=== PATIENT | female | born 1940 | race Caucasian/White ===

== ENCOUNTER 2021-07-29 08:00 | Outpatient (RCR) | payer MEDICARE, BC, SELFPAY ==
--- NOTE | 2021-06-17 15:03 | PTOPEVAL ---
PHYSICAL THERAPY EVALUATION AND PLAN OF CARE 06-17-21 Thank you for referring Tara Doherty to [facility][Note 3].? Tara is scheduled to be seen for therapy? 1 x/week for 6 weeks. Please review, sign, date and return this plan of care LIZZETTE. I agree with and certify that the following plan of care is medically necessary. 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 ; feet cramps; Cardiovascular History Hx Hypertension Yes: meds Respiratory History Hx Respiratory Disorders No Significant History Gastrointestinal History Hx Other Gastrointestinal Disorders Yes: bleeding ulcers- meds, watch diet Genitourinary History Hx Genitourinary Disorders No Significant History Musculoskeletal History Hx Joint Replacement Yes: L TKR Endocrine History Hx Endocrine Disorders No Significant History HEENT History Hx HEENT Disorders No Significant History Other History Hx Cancer Yes: pancreatic cancer- non surgical, dx about 1 yr ago Hx Chemotherapy Yes: chemo every 2 weeks, not set for end time frame Hx Radiation Therapy Yes: 5 treatments, completed, no further planned Hx Other Medical Conditions Yes: with cancer treatment have lost 50# in past yr Evaluation Information Problem Diagnosis deconditioning due to chemotherapy and pancreatic cancer Onset March 2021 Subjective Information gradually decreased strength Query Text:As Reported By Patient/ and activity due to cancer Family treatments; have no appetite and food does not taste good to her; decreased activity- no longer working in yard or going out with friends; have not had any falls; Previous Treatments Previous Treatments For This Problem no PT treatments Prior Level of Function Activity Level (Last 3 Months) Occupation retired Activity of Daily Living Ability Independent Indoor/Home Mobility Independent Community Mobility Independent Stairs Ability Independent Functional Cognition (Planning, Shopping Independent , Taking Medications) Cooking
--- NOTE | 2021-07-29 08:39 | PTOPEVAL ---
PHYSICAL THERAPY DISCHARGE 07-29-21 Refer to the clinical summary below, for her status today, compared to the initial evaluation. The goals were partially achieved. Discharge PT services and she is to continue with her home exercises and increasing her walking and activity level as tolerated. Thank you for referring Tara Doherty to [facility] [place] Please review, sign, date and return this Discharge Report LIZZETTE. I agree with and certify that the following plan of care is medically necessary. Referring Physician Date Attending Provider: Yenifer Nolan MD Document 07/29/21 08:00 FREDDY (Rec: 07/29/21 08:39 FREDDY [id number]) Assessment Status Discharge Subjective Information Tara reports: still get Query Text:As Reported By Patient/ winded and do not have very Family good endurance yet; walking balance is better; doing exercises at home, doing as can; was able to go shopping with her friend for 2 hours, was tired but did OK; have not had any falls; the past week, has had some stomach issues, so not doing as much as she should; agrees to discharge from PT services and continue with HEP; Pain Assessment Timing of Pain Assessment Timing of Pain Assessment Assessment Self Report Self Report Pain Level 0 Pain Score Pain Score 0: Self Report Lower Extremity Muscle Strength Testing General Lower Extremity Strength Gross Lower Extremity Strength functional strength testing: - single leg standing R 7/ L 3 seconds - sit/stand from 18 seat 3x without use of UE's -supine SLR R 15/L 15 reps - side lying hip abduction R 12/ L 11 reps - sitting: ankle DF L 2+/5, with active DF lift to (-5'); she has awareness of this pt reports numbness and no sensation in L foot; educated on monitor skin, and check shoes for any items in them; and if she does have issues with walking and foot drags, there are options for ankle braces to support her ankle; verbal review of HEP, p
== END 2021-08-01 16:12 | disposition home or self-care (01) ==
LOC: ANHPT 08:00
PROVIDERS: PCP Physician Assistant
DX: C25.1 Malignant neoplasm of body of pancreas (principal); R53.81 Other malaise
CPT/HCPCS: 97110; 97161

== ENCOUNTER 2021-10-02 11:37 | Inpatient (IN) | payer MEDICARE, BC, SELFPAY ==
[2021-10-02] VITALS (8 sets, daily range): BP systolic 108–149; BP diastolic 62–100; PULSE 84–163; RESP 11–18; TEMP 36.5–36.9; O2SAT 99–100
--- NOTE | ~2021-10-02 | XR_ITS ---
XR chest 1V DATE: 10/02/2021 13:14 INDICATION: Multiple falls. Chest and shoulder pain TECHNIQUE: AP chest COMPARISON: None FINDINGS: Right internal jugular Port-A-Cath catheter tip overlies the superior vena cava. Normal heart size. Mild aortic unfolding and calcification. No hilar or mediastinal enlargement. No pulmonary infiltrate or consolidation, pleural effusion or pulmonary vascular congestion or pneumo thorax. Diffuse osteopenia. Degenerative spurring of the thoracic spine. IMPRESSION: No active cardiopulmonary disease Right Port-A-Cath Reviewed, dictated and finalized at location A. ATION THERAPIST
--- NOTE | ~2021-10-02 | CT_ITS ---
EXAMINATION: CT brain wo con DATE: 10/02/2021 12:46 INDICATION: Syncopal episodes. Patient fell, struck left side of head. TECHNIQUE: Computed tomography (CT) of the head was performed without intravenous contrast. The mA wa s adjusted according to patient size. Iterative reconstruction technique was employed. Exam dose: 68 1.00 mGy-cm total exam DLP. COMPARISON: 06/30/2005 MRI brain FINDINGS: Prominent calcification of the carotid siphon internal carotid artery calcifications. There is nonspecific diminished attenuation of the cerebral white matter, likely due to chronic small vess el ischemic changes. No intracranial mass lesion or hemorrhage or cerebrovascular accident, midline shift or mass effect i s detected. There is moderately prominent cerebral volume loss. No subdural or epidural hematoma. A bone flap is in place over the left posterior parietal area. No fracture or bone destruction of the cranial vault. Normal development and aeration of the paranasal sinuses. IMPRESSION: Status post left posterior parietal craniotomy Cerebral atherosclerosis and chronic small vessel ischemic changes of the cerebral white matter No acute intracranial finding or skull fracture Reviewed, dictated and finalized at Location A. Reviewed, dictated and finalized at location A. AL HYGIENIST IMPRESSION: Status post left posterior parietal craniotomy Cerebral atherosclerosis and chronic small vessel ischemic changes of the cereb ral white matter No acute intracranial finding or skull fracture
--- NOTE | ~2021-10-02 | US_ITS ---
EXAMINATION: US carotid duplex BI DATE: 10/03/2021 14:24 INDICATION: Syncope TECHNIQUE: Grayscale, color Doppler, and pulsed Doppler images of the cervical carotid arteries were obtained. The degree of vessel stenosis is placed in one of the following categories: normal, <50%, 5 0-69%, >=70% but less than near-occlusion, near-occlusion, or total occlusion. Note that percent sten osis relative to normal distal artery lumen diameter is indirectly measured from velocity measurement s as described by Aric, et al. Radiology 2003; 229:340-346. Notes: Normal: Peak systolic velocity <125 centimeters/sec and no plaque <50%. Peak systolic velocity <125 ( EDV <40; ICA/CCA PSV ratio <2.0; used these factors only a tandem lesions or low cardiac output or co ntralateral disease) 50-69 %: PSV 125-230 (EDV 40-100; ratio 2-4) >= 70% but less than near occlusion: PSV greater than 230 (EDV > 100; ratio> 4.0) Near Occlusion: PSV that is variable; markedly narrowed lumen Occlusion: Absent flow on color/spectral Doppler and no lumen on peña scale. COMPARISON: None. FINDINGS: RIGHT: The right common carotid artery (CCA) peak systolic velocity (PSV) is 88 cm/s. The right internal car otid artery (ICA) PSV is 86 cm/s. The right ICA end-diastolic velocity (EDV) is 16 cm/s. The right IC A/CCA PSV ratio is 1.0. The external carotid artery (ECA) PSV is 88 cm/s. There is antegrade flow in the right vertebral artery. LEFT: The left CCA PSV is 102 cm/s. The left ICA PSV is 64 cm/s. The left ICA EDV is 19.6 cm/s. The left IC A/CCA PSV ratio is 0.6. The ECA PSV is 95 cm/s. There is antegrade flow in the left vertebral artery . IMPRESSION: 1. Less than 50% stenosis in the right internal carotid artery by sonographic criteria. 2. Less than 50% stenosis in the left internal carotid artery by sonographic criteria. Reviewed, dictated and finalized at location B. [employer] IMPRESSION: 1. Less than 50% stenosis in the right internal carotid artery by sonographic nicole moreau. 2. Less than 50% stenosis in the left internal carotid artery by sonographic pan finn.
--- NOTE | ~2021-10-02 | XR_ITS ---
XR shoulder LT min 2V DATE: 10/02/2021 13:14 INDICATION: Multiple falls. Left shoulder pain TECHNIQUE: 4 views COMPARISON: None FINDINGS: Diffuse osteopenia. There is degenerative change at the left acromioclavicular joint. No fracture or dislocation, periosteal reaction or bone destruction or abnormal soft tissue calcifica tion of the left shoulder is noted. Degenerative spurring of the thoracic spine. Right-sided Port-A-Cath. IMPRESSION: Osteopenia Degenerative change at left acromioclavicular joint No fracture or dislocation of left shoulder is detected Reviewed, dictated and finalized at location A. [employer]
--- NOTE | ~2021-10-02 | CT_ITS ---
EXAMINATION: CTA chest PE protocol DATE: 10/02/2021 15:00 INDICATION: Chest pain, history of pancreatic cancer there is a 5 mm nodule TECHNIQUE: Computed tomography angiography (CTA) of the chest was performed with 100 mL Omnipaque-350 intravenous contrast timed to evaluate the pulmonary arteries. Coronal maximum intensity projection 3D-reconstructions were created by the technologist. The dose-length product (DLP) was 409.08 mGy-cm. Automated exposure control and iterative reconstruction technique were employed. COMPARISON: None FINDINGS: The pulmonary arteries are well-opacified. No pulmonary embolism is identified. There is a 5 mm nodule of the right lower lobe. A 5 mm nodule is also present in the right middle lobe. There is mild dependent atelectasis. No pleural effusion or pneumothorax is identified. Right hilar lymphaden opathy is noted. A bone island is noted in the T10 vertebral body. A right internal jugular Port-A-Ca th is noted. The known pancreatic malignancy is not well demonstrated. IMPRESSION: 1. No pulmonary embolism identified. 2. Right hilar lymphadenopathy and right lung nodules, possible metastatic disease. Recommend correla tion with any outside hospital imaging. Reviewed, dictated and finalized at location F. SCREENER IMPRESSION: 1. No pulmonary embolism identified. 2. Right hilar lymphadenopathy and right lung nodules, possible metastatic dise ase. Recommend correlation with any outside hospital imaging.
--- NOTE | 2021-10-02 11:57 | ECG_ITS ---
Measurements Intervals [place] Rate: 102 P: 50 KS: 160 QRS: -37 QRSD: 108 T: 50 QT: 365 QTc: 477 Interpretive Statements SINUS TACHYCARDIA ATRIAL PREMATURE COMPLEX LEFT AXIS DEVIATION VOLTAGE CRITERIA FOR LVH MINIMAL Q WAVES- HIGH LATERAL LEADS BASELINE ARTIFACT- I, II, III, AVR, AVL, AVF, V2-V6 BORDERLINE ECG Electronically Signed On 10-02-2021 13:38:23 NATIONAL FACILITIES MANAGER by Jalen Gutierrez D.O.
[2021-10-02] MEDS: SODIUM CHLORIDE 0.9% IV 1,000 ML 999 ML IV CONT (12:20)
--- NOTE | 2021-10-02 12:25 | ED.GENADULT ---
HPI - General Adult General Chief complaint: Syncope Stated complaint: syncopal episode Time Seen by Provider: 10/02/21 12:04 Source: RN notes reviewed History of Present Illness HPI narrative: Patient presents emergency department from home via EMS for syncope. He states that this a.m. she has had 2 syncopal episode she states that for syncopal episode was when she was standing in the shower drying her hair and she passed out and awoke on the floor of the bathtub at that time patient's neighbor came to help her get up states proximally an hour later she was getting her medications together in the kitchen when she again had a syncopal episode that time she suffered a skin tear to her left cheek she states she had no chest pain or shortness of breath no dizziness she states she has been feeling well she has a history of pancreatic cancer and is followed by Dr. Bazan for oncology at site and she does note some mild shoulder pain since the fall but denies any other injuries she has no complaints at this time states she has not had any recent illness Related Data Home Medications Medication Instructions Recorded Confirmed Adult One Daily Multivitamin 1 tablet PO DAILY 10/02/21 amlodipine 5 mg PO DAILY 10/02/21 benazepril 40 mg PO DAILY 10/02/21 docusate sodium 200 mg PO BID 10/02/21 metoprolol tartrate 50 mg PO BID 10/02/21 pantoprazole 40 mg PO BID 10/02/21 prochlorperazine maleate 10 mg PO Q6-8H PRN 10/02/21 Allergies Allergy/AdvReac Type Severity Reaction Status Date / Time No Known Allergies Allergy Verified 10/04/17 07:35 Review of Systems Review of Systems: Gen.: Denies fevers or chills Eyes: Denies eye pain or visual change ENT: Denies congestion Respiratory: Denies shortness of breath or cough CV: Denies chest pain reports syncope GI: Denies abdominal pain nausea, emesis or diarrhea Musculoskeletal: Denies back pain or muscle pain Neuro: Denies numbness, tingling, weakness or focal weakness Skin: Denies rash Except as documented, all other systems reviewed and negative [facility], [facility] Past Medical History Medical History (Updated 10/02/21 @ 17:05 by Rylan Razo DO) Pancreatic cancer Social History Social History (Updated 01/23/22 @ 12:31 by KAITLIN Rubio Smoking status: Never smoker Exam Narrative: APPEARANCE: No acute distress, nontoxic, resting in bed EYES: EOMI, PERRL HEENT: Normocephalic, superficial skin tear over the left cheek no active bleeding, nares patent Neck supple no midline tenderness palpation full range of motion neck without pain RESPIRATORY: No respiratory distress Clear to auscultation bilaterally with no rhonchi wheezing or rales. CARDIOVASCULAR: Regular rate and rhythm without murmurs rubs or gallops. ABDOMINAL: Soft, nontender, nondistended, no rebound or guarding MUSCULOSKELETAl: Moves all extremities. No clubbing, cyanosis or edema. Mild tenderness over the left anterior lateral shoulder no swelling or ecchymosis full range of motion of the shoulder without pain no tenderness left elbow or wrist radial pulse 2+ neurovascular intact NEURO: Awake and alert x 3 Following commands, speech normal, no focal deficits SKIN:: Warm, dry. No rashes lesions or abrasions PSYCHIATRIC: Normal affect/mood, Course Course Emergency Course: Patient with orthostatics in ED heart rate goes up to the 160s with standing I did print off a rhythm strip it does look like possible A. fib when she lays back down her heart rate goes back down in the 90s she states she felt dizzy when she stood up and it resolves when she lays down Called discussed with [facility] oncology Dr. Donis he feels with orthostasis patient may remain in our facility patient did have a hemoglobin of 9.0 on September 28 Discussed with MCKAYLA Matos for Dr. Chin presentation work-up agrees with admission at this time Discussed with patient and family results of workup and diagnosis. Discussed need for admission
[2021-10-02 12:41] LABS: Basophils Percent Auto 0.2 % (0.2-1.2); Eosinophils Percent Auto 0.6 % (0-4.4); Hematocrit 26.8 % (37.0-47.0); Hemoglobin 8.3 g/dL (12.0-15.0); Immature Granulocyte Absolute 0.03 K/mm3 (0.00-0.031); Immature Granulocyte Percent A 0.5 % (0-0.5); Lymphocytes Absolute Auto 0.33 K/mm3 (0.9-3.2); Lymphocytes Percent Auto 5.1 % (18.3-44.2); Mean Corpuscular Hemoglobin 24.9 pg (26-34); Mean Corpuscular Volume 80.2 fl (80-100); Mean Platelet Volume 10.1 fl (7.4-10.4); Monocytes Absolute Auto 0.1 K/mm3 (0.1-0.6); Monocytes Percent Auto 1.7 % (2.6-8.5); Neutrophils Percent Auto 91.9 % (45.5-73.1); Platelet Count Result 227 k/mm3 (150-375); Red Blood Count 3.34 M/mm3 (4.2-5.4); Red Cell Distribution Width 16.9 % (11.5-14.5); White Blood Count 6.5 K/mm3 (4.5-10.0)
[2021-10-02 12:53] LABS: Alanine Aminotransferase 17 U/L (4-35); Albumin Level 3.5 g/dL (3.5-5.1); Alkaline Phosphatase 80 U/L (38-126); Anion Gap 8 mmol/L (8-16); Aspartate Amino Transferase 23 U/L (14-36); Bilirubin,Total 0.4 mg/dL (0.2-1.3); Blood Urea Nitrogen 14 mg/dL (7-17); Carbon Dioxide 27 mmol/L (22-30); Chloride 99 mmol/L (98-107); Estimated CRCL calculation 40 ml/min; Estimated Glomerular Filt Rate > 60; Glucose 174 mg/dL (65-110); INR 1.1; Potassium 3.1 mmol/L (3.4-5.0); Prothrombin Time 13.9 Seconds (11.1-14.7); Sodium 134 mmol/L (137-145)
[2021-10-02 12:54] LABS: Partial Thromboplastin Time 28.6 SECONDS (22.3-36.8)
[2021-10-02 13:05] LABS: Troponin I 0.017 ng/mL (0.000-0.034)
[2021-10-02] MEDS: POTASSIUM CHLORIDE 20 MEQ TABLET 40 MEQ PO (13:28)
[2021-10-02 13:42] LABS: Add Urine Microscopic? YES; Appearance Urine Clear (Clear); Bacteria Urine 1+ /hpf; Bilirubin Urine Negative (Negative); Blood Urine Negative (Negative); Color Urine Yellow (Yellow); Glucose Urine UA Negative (Negative); Ketones Urine Negative (Negative); Leukocyte Esterase Ur Trace LEU/UL (Negative); Mucus Urine Rare /lpf; Nitrate Urine Negative (Negative); Protein Urine 1+ mg/dL (Negative); Specific Grav Ur 1.009 (1.001-1.035); Squamous Epithelial Cell Urine Many /hpf (Few); Urobilinogen Urine Negative mg/dL (<2.0)
[2021-10-02 16:21] LABS: SARS-CoV-2 RNA PCR Negative
[2021-10-02] MEDS: SODIUM CHLORIDE 0.9% IV 1,000 ML 125 ML IV CONT (16:44)
--- NOTE | 2021-10-02 18:00 | PM.IMHP ---
H&P: HPI History of Present Illness Date/Time: 10/02/21 18:00 Chief Complaint: Syncope x2. Narrative: This is a very pleasant 81-year-old female with hypertension and pancreatic cancer who presented to the emergency department earlier today via EMS from home for evaluation of syncope x2. She was diagnosed with pancreatic cancer in November 2019 and was treated with radiation initially and she continues to receive chemotherapy every other week with her last treatment being 3 days ago. She tolerates chemotherapy quite well however this cycle her appetite has not been as good and thus she has had decrease in oral intake. She felt fine when she woke this morning and after breakfast she went to have a shower at which time she noticed that her heart was beating fast. When she was in the shower her heart rate seem to slow down however towards the end of her shower she developed sudden feelings of wooziness and lightheadedness in the next thing she know she was waking up on her back in the bathtub. Her and neighbors helped her to bed where she rested for a period of time before getting up to take her morning medications. While walking to the kitchen her heart started to race again and she once again felt lightheaded and had a syncopal episode, landing face forward on the floor. She sustained a skin tear to the left cheek and a sore left shoulder but luckily had no other injuries. Her blood pressures have been stable since arrival to the emergency department however she is orthostatic in the fact that she becomes quite tachycardic with standing and she is being admitted for rehydration. CTA of the chest was negative for pulmonary embolism. Her hemoglobin was 8.3 which is not necessarily unusual for her. She has not had any significant headache or neck ache. No recent cold or flu symptoms. No sick contacts. No fever, chills, or sweats. She denies chest pain, pleuritic pain, and shortness of breath. No cough. Appetite has been decreased but she has not had nausea, vomiting, or diarrhea. No dysuria. Review of Systems Review of Systems: Twelve systems were reviewed and are negative except for as per HPI. [facility] Past Medical History Medical History (Updated 10/02/21 @ 23:41 by Shawna aCrdoza PA-C) Arthritis Brain tumor (1987) Hypercholesterolemia Hypertension Pancreatic cancer (11/2019) Status post radiation. Receives chemotherapy every other week. Followed by [facility]. Surgical History Surgical History (Updated 10/02/21 @ 23:34 by Shawna Cardoza PA-C) History of bladder suspension procedure History of craniotomy (1987) Resection of brain tumor. History of left knee replacement Family History Family History Father Congestive heart failure Mother Congestive heart failure Sibling Cerebrovascular accident Social History Social History (Updated 10/02/21 @ 23:35 by Shawna Cardoza PA-C) Social History: Resides in [place] with her . Retired. No alcohol, tobacco, or illicit substance abuse. Surrogate decision maker: Sonu Montanady, spouse. Code status: Full code. Meds Home Medications and Allergies Home Medications Medication Instructions Recorded Confirmed Type Adult One Daily Multivitamin 1 tablet PO DAILY 10/02/21 10/02/21 History aluminum-magnesium hydroxide 1 tab-cap PO PRN PRN 10/02/21 10/02/21 History amlodipine 5 mg PO DAILY 10/02/21 10/02/21 History docusate sodium 200 mg PO BID 10/02/21 10/02/21 History metoprolol tartrate 50 mg PO BID 10/02/21 10/02/21 History pantoprazole 40 mg PO BID 10/02/21 10/02/21 History prochlorperazine maleate 10 mg PO Q6-8H PRN 10/02/21 10/02/21 History simvastatin 20 mg PO HS 10/02/21 10/02/21 History sucralfate 1 g PO TID 10/02/21 10/02/21 History triamterene-hydrochlorothiazid 1 tablet PO QAM 10/02/21 10/02/21 History Allergies Allergy/AdvReac Type Severity Reaction Status Date / Time cefepime Emmanuel
--- NOTE | 2021-10-02 19:19 | PC.NURSE ---
This patient, Tara Doherty, was admitted to [facility] Surg Room 323-02 at 1747. Patient/family oriented to hospital policies and general routines including ID bracelet, bed and alarms, visiting hours, pain management, procedures, bathroom and other care routines, personal items, smoking policy, room service/diet, and visiting hours. Information on how to activate the Rapid Response Team has been discussed. Patient/Family are encouraged to report perceived risks to care and to ask questions if they do not understand what they are told or what they should do.
[2021-10-02 19:52] LABS: Troponin I 0.034 ng/mL (0.000-0.034)
[2021-10-02 23:21] LABS: Troponin I 0.022 ng/mL (0.000-0.034)
[2021-10-03] VITALS (23 sets, daily range): BP systolic 124–146; BP diastolic 61–78; PULSE 68–100; RESP 16–20; TEMP 35.8–37.2; O2SAT 96–101; BMI 25.4
[2021-10-03 00:07] LABS: Hematocrit 22.6 % (37.0-47.0)
[2021-10-03 00:16] LABS: Magnesium 1.9 mg/dL (1.6-2.3); Potassium 3.4 mmol/L (3.4-5.0)
[2021-10-03 00:23] LABS: Hemoglobin 6.9 g/dL (12.0-15.0)
[2021-10-03] MEDS: SODIUM CHLORIDE 0.9% IV 1,000 ML 125 ML IV CONT ×2 (03:11→03:57)
[2021-10-03 04:10] LABS: Hemoglobin A1C 6.3 % (<5.7)
[2021-10-03] MEDS: TUBING, BLOOD PLUM PUMP TUBING 1 EACH XX (08:09)
[2021-10-03] MEDS: SODIUM CHLORIDE 0.9% IV 250 ML 30 ML (08:10)
[2021-10-03] MEDS: MULTIVITAMINS THERAPEUTIC TAB (*BKC) 1 TABLET PO (08:13)
[2021-10-03] MEDS: DOCUSATE SODIUM 100 MG CAPSULE 200 MG PO ×2 (08:13→21:28)
[2021-10-03] MEDS: PANTOPRAZOLE 40 MG TABLET PO ×2 (08:13→16:21)
[2021-10-03] MEDS: METOPROLOL TARTRATE 50 MG TAB PO ×2 (08:13→21:28)
[2021-10-03] MEDS: SUCRALFATE 1 GM TABLET PO ×3 (08:13→16:21)
[2021-10-03 13:24] LABS: Basophils Percent Auto 0.4 % (0.2-1.2); Eosinophils Absolute Auto 0.1 K/mm3 (0-0.3); Eosinophils Percent Auto 1.1 % (0-4.4); Hematocrit 34.1 % (37.0-47.0); Hemoglobin 10.6 g/dL (12.0-15.0); Immature Granulocyte Absolute 0.02 K/mm3 (0.00-0.031); Immature Granulocyte Percent A 0.4 % (0-0.5); Lymphocytes Percent Auto 9.1 % (18.3-44.2); Mean Corpuscular HGB Conc 31.1 g/dl (32-36); Mean Corpuscular Hemoglobin 26.4 pg (26-34); Mean Platelet Volume 9.8 fl (7.4-10.4); Monocytes Absolute Auto 0.2 K/mm3 (0.1-0.6); Monocytes Percent Auto 3.5 % (2.6-8.5); Neutrophils Absolute Auto 4.7 K/mm3 (1.3-6.7); Neutrophils Percent Auto 85.5 % (45.5-73.1); Platelet Count Result 202 k/mm3 (150-375); Red Blood Count 4.01 M/mm3 (4.2-5.4); Red Cell Distribution Width 16.6 % (11.5-14.5); White Blood Count 5.5 K/mm3 (4.5-10.0)
--- NOTE | 2021-10-03 13:24 | PM.IMPN ---
Progress Note: A&P Assessment and Plan (1) Syncope: Code(s): R55 - Syncope and collapse Status: Acute Assessment and Plan: Patient had a brief prodrome prior to these episodes. Her blood pressures have been stable since arrival to the emergency department though she becomes quite tachycardic with standing. Obviously patient was orthostatic at presentation Given poor oral intake the last several days she may be dehydrated thus she will be cautiously hydrated overnight. She will be monitored on telemetry to rule out cardiac dysrhythmia. Echocardiogram and carotid Doppler ultrasounds ordered for further evaluation. Continue fall precautions. Echocardiogram was done. Follow-up report in a.m.. (2) Tachycardia: Code(s): R00.0 - Tachycardia, unspecified Status: Acute Assessment and Plan: Present only upon standing. Give IV fluids. CTA of the chest was negative for pulmonary embolism. Check TSH and echocardiogram. Continue to monitor orthostatic vital signs. (3) Hypokalemia: Code(s): E87.6 - Hypokalemia Status: Acute Assessment and Plan: Potassium will be replaced and monitored. Potassium 3.4 today give potassium 20 med p.o. once. (4) Pancreatic cancer: Code(s): C25.9 - Malignant neoplasm of pancreas, unspecified Status: Acute Assessment and Plan: Status post radiation, receiving chemotherapy other week. Chest CT shows hilar lymphadenopathy and pulmonary nodules which may be evidence of metastatic disease. She will need to follow-up with her physicians at [facility]. (5) Anemia: Code(s): D64.9 - Anemia, unspecified Status: Acute Assessment and Plan: May be playing a role in her tachycardia. Repeat hemoglobin and hematocrit 10.6 in 34.1. (6) Abnormal urinalysis: Code(s): R82.90 - Unspecified abnormal findings in urine Status: Acute Assessment and Plan: No symptoms to suggest UTI. Hold on IV antibiotics. (7) Hypertension: Code(s): I10 - Essential (primary) hypertension Status: Acute Assessment and Plan: Blood pressures were reviewed and they are stable. Given her syncopal episodes and tachycardia was standing, I will probably hold her antihypertensives this evening. Today if blood pressure stable in the 130/60 4-144/63. We are resuming home meds in the morning. Continue close BP monitoring. (8) Hyperglycemia: Code(s): R73.9 - Hyperglycemia, unspecified Status: Acute Assessment and Plan: Random glucose is 163. . Check fasting glucose and A1c. Subjective Date/time seen: 10/03/21 13:24 Narrative:This is a very pleasant 81-year-old female with hypertension and pancreatic cancer who presented to the emergency department earlier today via EMS from home for evaluation of syncope x2. She was diagnosed with pancreatic cancer in November 2019 and was treated with radiation initially and she continues to receive chemotherapy every other week with her last treatment being 3 days ago. She tolerates chemotherapy quite well however this cycle her appetite has not been as good and thus she has had decrease in oral intake. She felt fine when she woke this morning and after breakfast she went to have a shower at which time she noticed that her heart was beating fast. When she was in the shower her heart rate seem to slow down however towards the end of her shower she developed sudden feelings of wooziness and lightheadedness in the next thing she know she was waking up on her back in the bathtub. She was helped back to her bed but experienced a 2nd similar episode later in the day, when she fell on her face. She sustained a skin tear to the left cheek and a sore left shoulder but luckily had no other injuries. Her blood pressures have been stable since arrival to the emergency department however she is orthostatic in the fact that she becomes quite tachycardic with standing and she is
[2021-10-03 13:35] LABS: Anion Gap 6 mmol/L (8-16); Blood Urea Nitrogen 9 mg/dL (7-17); Calcium 8.8 mg/dL (8.4-10.2); Carbon Dioxide 26 mmol/L (22-30); Chloride 102 mmol/L (98-107); Estimated CRCL calculation 52 ml/min; Estimated Glomerular Filt Rate > 60; Glucose 162 mg/dL (65-110); Potassium 3.4 mmol/L (3.4-5.0); Sodium 134 mmol/L (137-145)
[2021-10-03] MEDS: SIMVASTATIN 20 MG TABLET PO (21:29)
--- NOTE | 2021-10-03 23:44 | ECHO_ITS ---
Patient Info Name: Tara Doherty Age: 81 years : 1940 Gender: Female Ht: 63 in Wt: 145 lbs BSA: 1.72 m2 Heart Rhythm: Sinus Arrhythmia Technical Quality: Fair Exam Date: 10/03/2021 2:42 PM Exam Location: [facility] Patient Status: Inpatient Admit Date: 10/03/2021 Staff Ordering Physician: Shawna Cardoza PA-C Director Instructional Material: [place] RDCS Attending Provider: Fletcher Chin MD Referring Physician: Sony LO; Exam Type: CA echo doppler color flow Study Info Indications - syncope Complete two-dimensional, color flow and Doppler transthoracic echocardiogram is performed. Summary 1. Complete two-dimensional, color flow and Doppler transthoracic echocardiogram is performed. 2. Normal LV size, sigmoid hypertrophy, normal overall LV systolic function, ejection fraction about 60%. Mid inferior wall appears hypokinetic. Diastolic dysfunction is present. Mild left atrial enlargement. Normal mitral valve structure, trivial MR. Mild aortic valve sclerosis, no hemodynamically significant stenosis. Mild aortic regurgitation. Trivial TR, RVSP 36 mmHg. Left Ventricle Left ventricular chamber dimension is normal. Left ventricular systolic function is normal, estimated at 60-65%. The left ventricular diastolic function is abnormal. E/e' 12.1 is abnormal. Right Ventricle Right ventricular chamber dimension is normal. Right ventricular systolic function is normal. Left Atria Left atrial chamber dimension is mildly enlarged. Right Atria Right atrial chamber dimension is normal. Aortic Valve There is mild aortic valve sclerosis. There is no aortic valve stenosis. There is mild aortic valve regurgitation. Pulmonic Valve The pulmonic valve is normal. There is mild pulmonic regurgitation. Mitral Valve The mitral valve has normal leaflets. There is trace mitral valve regurgitation. Tricuspid Valve The tricuspid valve leaflets are normal. There is trace tricuspid valve regurgitation. Mild pulmonary hypertension, estimated pulmonary arterial systolic pressure is 36 mmHg. Pericardium/Pleural The pericardium appears epicardial fat pad. Aorta The aortic root size at the sinus of Valsalva is normal. Left Ventricular Outflow Tract Name Value Normal LVOT 2D LVOT Diameter 2.0 cm LVOT Doppler LVOT Peak Gradient 6 mmHg LVOT Mean Gradient 3 mmHg LVOT VTI 28 cm LVOT VTI/AV VTI Ratio 0.9 LVOT Stroke Volume 88 ml LVOT CO 6.2 l/min LVOT CI 3.6 l/min/m2 Pulmonic Valve Name Value Normal RVOT Doppler RVOT Peak Gradient 1 mmHg PV Doppler
[2021-10-04] VITALS (8 sets, daily range): BP systolic 111–128; BP diastolic 61–73; PULSE 62–74; RESP 16–18; TEMP 36.4–36.8; O2SAT 99
[2021-10-04 00:46] LABS: Glucose Point of Care 212 mg/dl (65-105)
[2021-10-04] MEDS: SODIUM CHLORIDE 0.9% IV 1,000 ML 125 ML IV CONT (03:23)
[2021-10-04] MEDS: DOCUSATE SODIUM 100 MG CAPSULE 200 MG PO (08:09)
[2021-10-04] MEDS: PANTOPRAZOLE 40 MG TABLET PO ×2 (08:09→16:38)
[2021-10-04] MEDS: MULTIVITAMINS THERAPEUTIC TAB (*BKC) 1 TABLET PO (08:09)
[2021-10-04] MEDS: SUCRALFATE 1 GM TABLET PO ×3 (08:09→17:35)
[2021-10-04] MEDS: TRIAMTERENE 37.5 MG/HCTZ 25 MG (MAXZIDE) TABLET 1 TAB PO (08:11)
[2021-10-04] MEDS: amLODIPine BESYLATE 5 MG TABLET PO (08:11)
[2021-10-04] MEDS: METOPROLOL TARTRATE 50 MG TAB PO (08:11)
--- NOTE | 2021-10-04 09:07 | PM.IMPN ---
Progress Note: A&P Assessment and Plan (1) Syncope: Code(s): R55 - Syncope and collapse Status: Acute Assessment and Plan: Patient had a brief prodrome prior to these episodes. Her blood pressures have been stable since arrival to the emergency department though she becomes quite tachycardic with standing. Obviously patient was orthostatic at presentation Given poor oral intake the last several days she may be dehydrated thus she will be cautiously hydrated overnight. She will be monitored on telemetry to rule out cardiac dysrhythmia. Echocardiogram and carotid Doppler ultrasounds ordered for further evaluation. Continue fall precautions. Echocardiogram was done. Follow-up report inferior hypokinetic segment. Patient will follow-up with a stress test with Cardiology as an outpatient. (2) Tachycardia: Code(s): R00.0 - Tachycardia, unspecified Status: Acute Assessment and Plan: Present only upon standing. Give IV fluids. CTA of the chest was negative for pulmonary embolism. Check TSH and echocardiogram. Continue to monitor orthostatic vital signs. (3) Hypokalemia: Code(s): E87.6 - Hypokalemia Status: Acute Assessment and Plan: Potassium will be replaced and monitored. Potassium 3.4 today give potassium 20 med p.o. once. (4) Pancreatic cancer: Code(s): C25.9 - Malignant neoplasm of pancreas, unspecified Status: Acute Assessment and Plan: Status post radiation, receiving chemotherapy other week. Chest CT shows hilar lymphadenopathy and pulmonary nodules which may be evidence of metastatic disease. She will need to follow-up with her physicians at [facility]. (5) Anemia: Code(s): D64.9 - Anemia, unspecified Status: Acute Assessment and Plan: May be playing a role in her tachycardia. Repeat hemoglobin and hematocrit 10.6 in 34.1. (6) Abnormal urinalysis: Code(s): R82.90 - Unspecified abnormal findings in urine Status: Acute Assessment and Plan: No symptoms to suggest UTI. Hold on IV antibiotics. (7) Hypertension: Code(s): I10 - Essential (primary) hypertension Status: Acute Assessment and Plan: Blood pressures were reviewed and they are stable. Given her syncopal episodes and tachycardia was standing, I will probably hold her antihypertensives this evening. Today if blood pressure stable in the 130/60 4-144/63. We are resuming home meds in the morning. Continue close BP monitoring. (8) Hyperglycemia: Code(s): R73.9 - Hyperglycemia, unspecified Status: Acute Assessment and Plan: Random glucose is 163. . Check fasting glucose and A1c. Subjective Date/time seen: 10/04/21 09:07 S: Patient seen examined at the bedside. She denies any complaints. She is anxious to Review of Systems Review of Systems: All systems reviewed & are unremarkable except as noted in HPI and below Exam Narrative: General: Well-developed, well-nourished, nontoxic-appearing elderly female in the semi-Blanton position in bed. Weight: 66 kg. BMI: 25.8. HEENT: Skin tear on the left cheek. PERRL, EOMI. Sclerae anicteric. Tacky mucous membranes. Neck: Supple. No adenopathy or obvious carotid bruits. Respiratory: Lungs are clear to auscultation bilaterally. Cardiovascular: Regular rate and rhythm with S1-S2. Patient becomes tachycardic with standing. Chest: Port-A-Cath in the right anterior chest. Gastrointestinal: Abdomen is soft, nontender, and nondistended with positive bowel sounds. Skin: Warm and dry. Generalized pallor. Extremities: No cyanosis, clubbing, or significant edema. Radial and pedal pulses intact. Negative Romina sign bilaterally. Neurological: Alert and oriented. Cranial nerves 2-12 are grossly intact. No gross focal deficits to casual conversation. Psychiatric: Pleasant and cooperative with normal mood and affect. Judgment and insight intact. Objective Da
[2021-10-04 10:28] LABS: Hematocrit 33.2 % (37.0-47.0); Hemoglobin 10.7 g/dL (12.0-15.0); Mean Corpuscular HGB Conc 32.2 g/dl (32-36); Mean Corpuscular Hemoglobin 26.6 pg (26-34); Mean Corpuscular Volume 82.6 fl (80-100); Mean Platelet Volume 9.8 fl (7.4-10.4); Platelet Count Result 173 k/mm3 (150-375); Red Blood Count 4.02 M/mm3 (4.2-5.4); Red Cell Distribution Width 16.8 % (11.5-14.5)
[2021-10-04 10:47] LABS: Anion Gap 7 mmol/L (8-16); Blood Urea Nitrogen 9 mg/dL (7-17); Calcium 8.5 mg/dL (8.4-10.2); Carbon Dioxide 26 mmol/L (22-30); Chloride 100 mmol/L (98-107); Estimated CRCL calculation 45 ml/min; Estimated Glomerular Filt Rate > 60; Glucose 204 mg/dL (65-110); Potassium 3.1 mmol/L (3.4-5.0); Sodium 133 mmol/L (137-145)
[2021-10-04] MEDS: ACETAMINOPHEN 325 MG TABLET 650 MG PO (11:51)
[2021-10-04] MEDS: POTASSIUM CHLORIDE 20 MEQ TABLET 40 MEQ PO (11:51)
[2021-10-04] MEDS: SODIUM CHLORIDE 0.9% IV 1,000 ML 75 ML IV CONT (11:52)
--- NOTE | 2021-10-04 17:07 | PM.DS ---
DS: Admitting Diagnosis Discharge Date 10/04/2021 Admitting Diagnosis (1) Syncope: (2) Tachycardia: (3) Hypokalemia: (4) Pancreatic cancer: (5) Anemia: (6) Abnormal urinalysis: (7) Hypertension: (8) Hyperglycemia: DS: Discharge Diagnosis Discharge Diagnosis (1) Syncope: Code(s): R55 - Syncope and collapse Status: Acute Assessment and Plan: Patient had a brief prodrome prior to these episodes. Her blood pressures have been stable since arrival to the emergency department though she becomes quite tachycardic with standing. Obviously patient was orthostatic at presentation Given poor oral intake the last several days she may be dehydrated thus she will be cautiously hydrated overnight. She will be monitored on telemetry to rule out cardiac dysrhythmia. Echocardiogram and carotid Doppler ultrasounds ordered for further evaluation. Continue fall precautions. Echocardiogram was done. Follow-up report in a.m.. (2) Tachycardia: Code(s): R00.0 - Tachycardia, unspecified Status: Acute Assessment and Plan: Present only upon standing. Give IV fluids. CTA of the chest was negative for pulmonary embolism. Check TSH and echocardiogram. Continue to monitor orthostatic vital signs. (3) Hypokalemia: Code(s): E87.6 - Hypokalemia Status: Acute Assessment and Plan: Potassium will be replaced and monitored. Potassium 3.4 today give potassium 20 med p.o. once. (4) Pancreatic cancer: Code(s): C25.9 - Malignant neoplasm of pancreas, unspecified Status: Acute Assessment and Plan: Status post radiation, receiving chemotherapy other week. Chest CT shows hilar lymphadenopathy and pulmonary nodules which may be evidence of metastatic disease. She will need to follow-up with her physicians at [facility]. (5) Anemia: Code(s): D64.9 - Anemia, unspecified Status: Acute Assessment and Plan: May be playing a role in her tachycardia. Repeat hemoglobin and hematocrit 10.6 in 34.1. (6) Abnormal urinalysis: Code(s): R82.90 - Unspecified abnormal findings in urine Status: Acute Assessment and Plan: No symptoms to suggest UTI. Hold on IV antibiotics. (7) Hypertension: Code(s): I10 - Essential (primary) hypertension Status: Acute Assessment and Plan: Blood pressures were reviewed and they are stable. Given her syncopal episodes and tachycardia was standing, I will probably hold her antihypertensives this evening. Today if blood pressure stable in the 130/60 4-144/63. We are resuming home meds in the morning. Continue close BP monitoring. (8) Hyperglycemia: Code(s): R73.9 - Hyperglycemia, unspecified Status: Acute Assessment and Plan: Random glucose is 163. . Check fasting glucose and A1c. DS: Summary Hospital Course Reason for hospitalization: Syncope x2. Hospital Course: Please refer to admission H&P. Briefly,this is a very pleasant 81-year-old female with hypertension and pancreatic cancer who presented to the emergency department earlier today via EMS from home for evaluation of syncope x2. She was diagnosed with pancreatic cancer in November 2019 and was treated with radiation initially and she continues to receive chemotherapy every other week with her last treatment being 3 days ago. She tolerates chemotherapy quite well however this cycle her appetite has not been as good and thus she has had decrease in oral intake. She felt fine when she woke this morning and after breakfast she went to have a shower at which time she noticed that her heart was beating fast. When she was in the shower her heart rate seem to slow down however towards the end of her shower she developed sudden feelings of wooziness and lightheadedness in the next thing she know she was waking up on her back in the bathtub. Her and neighbors helped her to bed where she rested for a period of time before
== END 2021-10-04 17:50 | disposition home or self-care (01) | DRG 641 ==
LOC: ANHED 12:20 → ANH3MEDSUR 17:02
PROVIDERS: Internal Medicine; Physician Assistant; Admitting Provider Internal Medicine; Emergency Provider Emergency Medicine; PCP Physician Assistant; Visit Provider Internal Medicine
DX: E86.0 Dehydration (principal); C25.9 Malignant neoplasm of pancreas, unspecified; I95.1 Orthostatic hypotension; R00.0 Tachycardia, unspecified; Z20.822 Contact with and (suspected) exposure to COVID-19; E87.6 Hypokalemia; D64.9 Anemia, unspecified; I10 Essential (primary) hypertension; R73.9 Hyperglycemia, unspecified; M19.90 Unspecified osteoarthritis, unspecified site; Z96.652 Presence of left artificial knee joint; R82.90 Unspecified abnormal findings in urine
CPT/HCPCS: 36415; 36430; 70450; 71045; 71275; 73030; 80048; 80053; 81001; 82948; 83036; 83735; 84132; 84443; 84484; 85014; 85018; 85025; 85027; 85610; 85730; 86850; 86900; 86901; 86920; 93005; 93306; 93880; 96361; 96365; 99285; A9270; C9803; G0378; J0696; J7030; J7050; P9016; Q9967; U0003; U0005

== ENCOUNTER 2022-01-17 18:40 | Emergency (ER) | payer MEDICARE, BC, SELFPAY ==
[2022-01-17] VITALS (17 sets, daily range): BP systolic 118–143; BP diastolic 73–90; PULSE 81–97; RESP 12–23; TEMP 36.6; O2SAT 94–100
--- NOTE | 2022-01-17 18:47 | ECG_ITS ---
Measurements Intervals [place] Rate: 87 P: 78 IL: 147 QRS: -36 QRSD: 102 T: 12 QT: 373 QTc: 451 Interpretive Statements SINUS RHYTHM LEFT AXIS DEVIATION VOLTAGE CRITERIA FOR LVH BORDERLINE T WAVE ABNORMALITY- INFERIOR LEADS BORDERLINE ECG Electronically Signed On 01-17-2022 20:03:53 CDT by Jalen Gutierrez D.O.
--- NOTE | 2022-01-17 19:17 | ED.GENADULT ---
HPI - General Adult General Chief complaint: Syncope Stated complaint: SYNCOPAL EPISODE/AFIB RVR Time Seen by Provider: 01/17/22 18:53 Source: patient, family and RN notes reviewed Limitations: no limitations History of Present Illness HPI narrative: 81-year-old female with history of syncope and currently being treated for pancreatic cancer presents to the emergency department after having an episode of syncope today. Patient states that she did have an upset stomach this morning and did not have very much for breakfast. Patient states she was standing in front of the fridge trying to get some cottage cheese when she had onset of dizziness and lightheadedness. Patient felt like she was going to pass out and she called out to her . Patient states she did fall backwards onto her buttocks. Patient denies striking her head. Patient states she was only unconscious for moments. Patient states that she does have to go to the clinic once a week to get IV fluids for dehydration due to her current pancreatic cancer treatment. Patient is being treated by Dr. Goldberg. Patient and family state that she has had multiple episodes of syncope previously and that this was similar to her previous episodes of syncope. Related Data Home Medications Medication Instructions Recorded Confirmed Adult One Daily Multivitamin 1 tablet PO DAILY 10/02/21 10/02/21 aluminum-magnesium hydroxide 1 tab-cap PO PRN PRN 10/02/21 10/02/21 amlodipine 5 mg PO DAILY 10/02/21 10/02/21 docusate sodium 200 mg PO BID 10/02/21 10/02/21 metoprolol tartrate 50 mg PO BID 10/02/21 10/02/21 pantoprazole 40 mg PO BID 10/02/21 10/02/21 prochlorperazine maleate 10 mg PO Q6-8H PRN 10/02/21 10/02/21 simvastatin 20 mg PO HS 10/02/21 10/02/21 sucralfate 1 g PO TID 10/02/21 10/02/21 triamterene-hydrochlorothiazid 1 tablet PO QAM 10/02/21 10/02/21 Allergies Allergy/AdvReac Type Severity Reaction Status Date / Time cefepime Allergy Unknown Verified 10/02/21 17:17 Review of Systems Review of Systems: CONSTITUTIONAL: Denies fever, chills, or sweats. EYES: Denies visual changes, redness, or discharge. ENT: Denies rhinorrhea, congestion, sore throat, or otalgia. CARDIOVASCULAR: Denies chest pain, palpitations, or edema. RESPIRATORY: Denies cough or dyspnea. GASTROINTESTINAL: Denies abdominal pain, nausea, vomiting, or diarrhea. GENITOURINARY: Denies dysuria or hematuria. SKIN: Denies rash or itching. MUSCULOSKELETAL: Denies back pain, joint pain, or myalgia. NEUROLOGIC: See [facility] Past Medical History Medical History (Updated 01/17/22 @ 21:47 by Curtis Bingham MD) Arthritis Brain tumor (1987) Hypercholesterolemia Hypertension Pancreatic cancer (11/2019) Status post radiation. Receives chemotherapy every other week. Followed by [facility]. Surgical History Surgical History (Updated 10/02/21 @ 23:34 by Shawna Cardoza PA-C) History of bladder suspension procedure History of craniotomy (1987) Resection of brain tumor. History of left knee replacement Family History Family History Father Congestive heart failure Mother Congestive heart failure Sibling Cerebrovascular accident Social History Social History (Updated 10/02/21 @ 23:35 by Shawna Cardoza PA-C) Social History: Resides in [place] with her . Retired. No alcohol, tobacco, or illicit substance abuse. Surrogate decision maker: Sonu Montanady, spouse. Code status: Full code. Spiritual care concerns: No Exam Narrative: APPEARANCE: Well appearing, no pain, no distress, well-nourished. HEAD: normocephalic, atraumatic. EYES: PERRLA/EOMI, conjunctivae clear. NOSE: Normal no drainage THROAT: Pharynx clear, no exudate. NECK: Supple. No adenopathy, no masses. RESPIRATORY: Airway patent, respirations nonlabored. Clear to auscultation bilaterally, no rales, rhonchi, wheezing. CARDIOVASCULAR: Regular rate and rh
--- NOTE | 2022-01-17 19:26 | PC.NURSE ---
BSSR from Krystina LAINEZ
[2022-01-17 19:27] LABS: Basophils Percent Auto 0.3 % (0.2-1.2); Eosinophils Absolute Auto 0.1 K/mm3 (0-0.3); Hematocrit 33.2 % (37.0-47.0); Hemoglobin 10.6 g/dL (12.0-15.0); Immature Granulocyte Absolute 0.04 K/mm3 (0.00-0.031); Immature Granulocyte Percent A 0.7 % (0-0.5); Lymphocytes Absolute Auto 0.92 K/mm3 (0.9-3.2); Lymphocytes Percent Auto 15.1 % (18.3-44.2); Mean Corpuscular HGB Conc 31.9 g/dl (32-36); Mean Corpuscular Hemoglobin 24.9 pg (26-34); Mean Corpuscular Volume 78.1 fl (80-100); Mean Platelet Volume 9.8 fl (7.4-10.4); Monocytes Absolute Auto 0.5 K/mm3 (0.1-0.6); Neutrophils Absolute Auto 4.6 K/mm3 (1.3-6.7); Neutrophils Percent Auto 74.9 % (45.5-73.1); Platelet Count Result 209 k/mm3 (150-375); Red Blood Count 4.25 M/mm3 (4.2-5.4); Red Cell Distribution Width 17.1 % (11.5-14.5); White Blood Count 6.1 K/mm3 (4.5-10.0)
[2022-01-17] MEDS: SODIUM CHLORIDE 0.9% IV 1,000 ML 999 ML IV CONT (19:41)
[2022-01-17 19:48] LABS: Alanine Aminotransferase 20 U/L (6-35); Albumin Level 3.4 g/dL (3.5-5.1); Alkaline Phosphatase 101 U/L (38-126); Anion Gap 9 mmol/L (8-16); Aspartate Amino Transferase 33 U/L (14-36); Bilirubin,Total 0.4 mg/dL (0.2-1.3); Blood Urea Nitrogen 11 mg/dL (7-17); Calcium 8.6 mg/dL (8.4-10.2); Carbon Dioxide 26 mmol/L (22-30); Chloride 100 mmol/L (98-107); Estimated CRCL calculation 38 ml/min; Estimated Glomerular Filt Rate > 60; Glucose 102 mg/dL (65-110); Potassium 2.9 mmol/L (3.4-5.0); Sodium 135 mmol/L (137-145)
[2022-01-17] MEDS: POTASSIUM CHLORIDE 20 MEQ PACKET (FOR LIQUID) 40 MEQ PO (20:37)
== END 2022-01-17 22:06 | disposition home or self-care (01) ==
PROVIDERS: Emergency Medicine; Emergency Provider Emergency Medicine; PCP Physician Assistant
DX: R55 Syncope and collapse (principal); M19.90 Unspecified osteoarthritis, unspecified site; E78.00 Pure hypercholesterolemia, unspecified; I10 Essential (primary) hypertension; C25.9 Malignant neoplasm of pancreas, unspecified; Z92.3 Personal history of irradiation; Z79.899 Other long term (current) drug therapy; Z96.652 Presence of left artificial knee joint; Z79.82 Long term (current) use of aspirin; R94.31 Abnormal electrocardiogram [ECG] [EKG]
CPT/HCPCS: 36415; 80053; 85025; 93005; 96360; 99284; A9270; J7030